=== PATIENT | male | born 1990 | race Hispanic/Latino ===

== ENCOUNTER 2017-10-05 20:51 | Emergency (ER) | payer OTHER, SELFPAY ==
--- NOTE | 2017-10-05 21:42 | RAD ---
THREE VIEWS OF THE LEFT HAND 10/05/17 COMPARISON: None. HISTORY: In a tree, flipped and fell, trauma, pain. FINDINGS: Three view examination of the left hand demonstrates an obliquely oriented and comminuted fracture at the base of the fourth metacarpal which probably extends into the fourth carpometacarpal joint. There is soft tissue swelling in this region, especially along the dorsal aspect of the hand. There i s no additional fracture or evidence of dislocation seen. IMPRESSION: Comminuted obliquely oriented proximal fourth metacarpal fracture with extension into the fourth carp ometacarpal joint. Recommend orthopedic consultation. POS: [facility]
== END 2017-10-05 21:50 | disposition home or self-care (01) ==
LOC: ERS 20:51
DX: S62.315A Displaced fracture of base of fourth metacarpal bone, left hand, initial encounter for closed fracture (principal); F90.9 Attention-deficit hyperactivity disorder, unspecified type; F43.10 Post-traumatic stress disorder, unspecified; W14.XXXA Fall from tree, initial encounter; Z87.891 Personal history of nicotine dependence
CPT/HCPCS: 29125

== ENCOUNTER 2023-05-20 01:04 | Emergency (ER) | payer OTHER | END 2023-05-20 01:38 | LOC: ERS 01:04 | DX: F10.129 Alcohol abuse with intoxication, unspecified (principal); Z87.891 Personal history of nicotine dependence; Y90.9 Presence of alcohol in blood, level not specified ==